=== PATIENT | female | born 1995 | race Caucasian/White ===

== ENCOUNTER 2021-09-13 11:37 | Inpatient (IN) ==
[2021-09-13] MEDS ORDERED: OXYTOCIN 30 UNITS/500 ML BAG IV PRN ×3 (12:25→18:48)
[2021-09-13] MEDS ORDERED: LACTATED RINGER'S 1,000 ML IV PRN (12:25)
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
[2021-09-13 12:54] LABS: Hematocrit (blood only) 32.2 % (37-47); Hemoglobin 10.9 g/dL (12.0-16.0); Mean Corpuscular Hemoglobin 28.3 pg (25-34); Mean Corpuscular Hgb Conc 33.9 g/dL (32-36); Mean Corpuscular Volume 83.6 fL (80-100); Mean Platelet Volume 10.7 fL (7.4-10.4); Platelet Count 209 K/uL (130-400); RDW Coefficient of Variation 13.3 % (11.5-14.5); RDW Standard Deviation 40.2 fL (36.4-46.3); Red Blood Count 3.85 M/uL (4.2-5.4); White Blood Count 11.08 K/uL (4.8-10.8)
[2021-09-13] MEDS ORDERED: SODIUM CHLORIDE 0.9% INJ 10 ML VIAL ONE (13:50)
[2021-09-13] MEDS ORDERED: ePHEDrine sulfate 50 MG/ML AMP ONE (13:50)
[2021-09-13] MEDS ORDERED: fentaNYL 2MCG/ML ROPIVACAINE 1.25MG/ML 100 ML BAG EPI ONE (13:51)
[2021-09-13] MEDS ORDERED: fentaNYL citrate 100 MCG/2 ML VIAL ONE (13:51)
[2021-09-13] MEDS ORDERED: BUPIVACAINE 0.25% 30 ML VIAL ONE (13:51)
--- NOTE | 2021-09-13 14:19 | Anesthesiology Consultation ---
Date of Service September 13, 2021 Assessment & Plan (1) Encounter for pre-operative examination: Chart Review Chart Review: Acceptable Risk for Surgery and Patient NOT seen in Pre Admission Testing Consults Requested none History Height/Weight Height: 5 ft 7 in Weight: 81.647 kg Allergies Allergy/AdvReac Type Severity Reaction Status Date / Time acetaminophen [From Tylenol] Allergy Mild throat Verified 09/10/21 10:46 closes penicillin G Allergy Mild hives Verified 09/10/21 10:46 Medications Home Medications Medication Instructions Recorded Confirmed Last Taken No Known Home Medications 07/15/21 09/10/21 Unknown Active Medications Generic Name Dose Route Start Last Admin Trade Name Freq PRN Reason Stop Dose Admin Lactated Ringer's 1,000 mls @ 125 mls/hr 09/13/21 12:25 09/13/21 12:48 Lr IV 09/15/21 12:24 999 mls/hr .Q8H PRN Administration L&D Protocol Protocol Past Medical History Medical History Aneurysm Posterior Broken arm Left - Repaired. Seizure 2-3 years ago. Stopped Gabapentin with positive test. Spontaneous vaginal delivery 02/2011 [facility] 12/2011 [facility] 07/2015 [facility] 02/2020 [facility] Past Family History Family History Aunt Breast cancer Other Cancer Depression Diabetes Pulmonary embolism Denies family history of Ovarian cancer Prostate cancer Colorectal cancer Past Surgical History Surgical History H/O wisdom tooth extraction History of appendectomy Hx laparoscopic cholecystectomy No pertinent past surgical history S/P dilation and curettage D&E x 2 Social History Smoking Status: Former smoker Hx Alcohol Use: No Hx Substance Use: No Physical Exam Vital Signs Last Vital Signs Temp 36.6 C 09/13/21 12:04 Pulse 75 09/13/21 12:04 Resp 18 09/13/21 13:26 BP 104/70 09/13/21 12:04 Testing Laboratory Results 09/13/21 12:42
[2021-09-13] MEDS ORDERED: NALOXONE HCL 0.4 MG/1 ML VIAL/CARP IV PRN (14:28)
[2021-09-13] MEDS ORDERED: NALOXONE HCL 1 MG in SODIUM CHLORIDE 0.9% 1000ML 1,000 ML IV PRN (14:28)
[2021-09-13] MEDS ORDERED: fentaNYL 2MCG/ML ROPIVACAINE 1.25MG/ML 100 ML BAG EPI PRN (14:28)
[2021-09-13] MEDS ORDERED: ONDANSETRON INJ 2 MG/ML 2 ML VIAL IV PRN (14:28)
[2021-09-13] MEDS ORDERED: ePHEDrine sulfate 50 MG/ML AMP IV PRN (14:28)
[2021-09-13] MEDS ORDERED: diphenhydrAMINE 50 MG/ML VIAL IV PRN (14:28)
[2021-09-13] MEDS ORDERED: NALBUPHINE HCL INJ 10 MG/ML AMP IV PRN (14:28)
--- NOTE | 2021-09-13 15:38 | Labor Progress Brief Note ---
Date of Service September 13, 2021 Subjective Reason For Note: Routine Evaluation Assessment & Plan (1) Encounter for supervision of normal in multigravida: Plan: 1. Fetus: Cat 1 2. Labor: Active. AROM for mec 3. Vitals: Stable (2) Poor patient attendance of care: (3) Active labor at term: Admission and Anticipated Discharge Date Admission Date: September 13, 2021 Physical Exam Genitourinary: Manual OB Exam: + cervical dilation 7 cm, + cervical effacement 90%, + station -1 and + amniotic fluid meconium OB Exam Monitor Tracing: + external FHT monitor used, + external uterine monitor used, + category I and + normal FHT variability; no early decelerations present, no late decelerations present and no variable decelerations Results & Data ([facility]) Vital Signs (Past 12 Hours) Vital Signs Temp Pulse Resp BP Pulse Ox 09/13/21 15:30 105 H 101/56 L 09/13/21 15:26 120 H 99 09/13/21 15:21 105 H 99 09/13/21 15:20 90 100/51 L 09/13/21 15:16 105 H 97/54 L 98 09/13/21 15:11 102 H 98 09/13/21 15:09 114 H 99/51 L 09/13/21 15:07 110 H 102/56 L 09/13/21 15:06 112 H 97 09/13/21 15:04 117 H 103/57 L 09/13/21 15:02 102 H 96/57 L 09/13/21 15:01 108 H 98 09/13/21 15:00 125 H 99/58 L 09/13/21 14:58 108 H 101/64 09/13/21 14:56 120 H 96/52 L 98 09/13/21 14:54 104 H 104/58 L 09/13/21 14:53 116 H 105/64 09/13/21 14:51 95 H 100 09/13/21 14:50 104 H 110/75 09/13/21 14:48 92 H 116/77 09/13/21 14:46 88 98 09/13/21 14:41 92 H 98 09/13/21 14:37 87 122/84 87 L 09/13/21 14:36 86 100 11/08/21 13:26 18 09/13/21 12:04 36.6 C 75 18 104/70 09/13/21 11:52 75 104/70 Coding Level of Care Code None Diagnoses Encounter for supervision of normal in multigravida Z34.80 Poor patient attendance of care O09.30 Active labor at term
[2021-09-13] MEDS ORDERED: METHYLERGONOVINE MALEATE 0.2 MG/ML AMP ONE (16:15)
[2021-09-13] MEDS ORDERED: miSOPROStoL 200 MCG TAB ONE (16:15)
[2021-09-13] MEDS ORDERED: BENZOCAINE 20% AER SPR 82.5 GM CAN EXT PRN ×2 (16:23→18:48)
[2021-09-13] MEDS ORDERED: SUPERCREAM 0.870% 15 GM JAR EXT PRN ×2 (16:23→18:48)
[2021-09-13] MEDS ORDERED: DIPHTHERIA/TETANUS/PERTUSSIS 0.5 ML SYR/VIAL IM ONE (16:23)
[2021-09-13] MEDS ORDERED: ACETAMINOPHEN 325 MG TAB PO PRN (16:23)
[2021-09-13] MEDS ORDERED: HYDROCORTISONE ACETATE 25 MG SUPP PR PRN ×2 (16:23→18:48)
[2021-09-13] MEDS ORDERED: bisacodyL 10 MG SUPP PR PRN (16:23)
--- NOTE | 2021-09-13 18:05 | Anesthesia Procedure Note ---
Date of Service September 13, 2021 Anesthesia Post Epidural Note Vital Signs Vital Signs: Temp Pulse Resp BP Pulse Ox 36.9 C 65 16 114/63 90 09/13/21 15:00 09/13/21 17:46 09/13/21 17:15 09/13/21 17:46 09/13/21 17:16 Notes Mental Status: alert / awake / arousable and participated in evaluation Nausea / Vomiting: adequately controlled Pain: adequately controlled Airway Patency, RR, SpO2: stable & adequate BP & HR: stable & adequate Hydration State: stable & adequate Neuraxial Anesthesia: was administered and sensory block is resolving Anesthetic Complications: no major complications apparent and Pt Satisfied with anesthetic care Epidural: Removed without complications and With tip intact Notes: Epidural site clean, dry and intact. No signs of edema, erythema or bruising at insertion site. Pt instructed to request anesthesia if she has residual lower extremity numbness or if she develops lower extremity pain or weakness, back pain or headache.
[2021-09-13] MEDS ORDERED: IBUPROFEN 600 MG TAB PO PRN (18:48)
[2021-09-13] MEDS ORDERED: DOCUSATE SODIUM 100 MG CAP PO SCH (21:00)
[2021-09-13 22:02] LABS: Amphetamines+Metham, Urine Neg (Neg); Barbiturates, Urine Neg (Neg); Benzodiazepine, Urine Neg (Neg); Cocaine, Urine Neg (Neg); MDMA (Ecstacy), Urine Neg (Neg); Methadone, Urine Neg (Neg); Opiate, Urine Neg (Neg); Phencyclidine, Urine Neg (Neg)
[2021-09-13] MEDS: DOCUSATE SODIUM 100 MG CAP PO SCH (22:10)
[2021-09-13] MEDS: IBUPROFEN 600 MG TAB PO PRN (22:10)
--- NOTE | 2021-09-13 22:45 | Delivery Summary ---
DATE OF SERVICE: 09/13/2021 PROCEDURE: Normal spontaneous vaginal delivery. SURGEON: Jorgito Thompson MD. PREOPERATIVE DIAGNOSES: 1. Single intrauterine at 39 weeks, 0 days gestational age. 2. Late care. 3. History of brain aneurysm. 4. History of cardiac defect in prior . POSTOPERATIVE DIAGNOSES: 1. Single intrauterine at 39 weeks, 0 days gestational age. 2. Late care. 3. History of brain aneurysm. 4. History of cardiac defect in prior . 5. Status post delivery. ESTIMATED BLOOD LOSS: 300 mL. DRAINS: Straight cath at the completion of the case. URINE OUTPUT: Per straight cath. COMPLICATIONS: None. FINDINGS: Viable female infant with weight pending and Apgars of 8 and 9 at one and five minutes res pectively. INDICATIONS: The patient is a 26-year-old G7, P4, admitted at 39 weeks' gestational age, in active la bor. The patient underwent artificial rupture of membranes for meconium stained fluid. She received epidural for anesthesia. After rupture she progressed to complete-complete +2 station, felt a strong urge to push. After 30 minutes of rupture, the patient pushed for approximately one contraction to achieve delivery. DESCRIPTION OF PROCEDURE: The patient progressed to 10 cm dilated, 100% effaced, positive 2 station, pushed over intact perineum with epidural anesthesia, delivered a viable female , weight and A pgars as noted above. Head of the delivered in TITO position, restituted to right transverse. Nuchal cord was noted. Body and shoulders quickly followed. was noted to be vigorous soon after delivery. One minute delayed cord clamping was initiated, after which the cord was double cla mped and cut. remained on maternal abdomen. Cord blood was obtained. Attention was then tu rned to delivery of the placenta, which was delivered intact, 3-vessel cord, gentle cord traction. On inspection of the perineum, vagina, and cervix, there was noted to be no lacerations. Sponge, and i nstrument counts were correct at the completion of the case. Both mother and stable in the i mmediate post-delivery period. Job ID: [id number]
[2021-09-14] MEDS: IBUPROFEN 600 MG TAB PO PRN ×5 (01:44→19:36)
[2021-09-14 06:11] LABS: Hematocrit (blood only) 28.9 % (37-47); Hemoglobin 9.8 g/dL (12.0-16.0); Mean Corpuscular Hemoglobin 28.2 pg (25-34); Mean Corpuscular Hgb Conc 33.9 g/dL (32-36); Mean Platelet Volume 10.6 fL (7.4-10.4); Platelet Count 174 K/uL (130-400); RDW Coefficient of Variation 13.3 % (11.5-14.5); RDW Standard Deviation 40.4 fL (36.4-46.3); Red Blood Count 3.48 M/uL (4.2-5.4); White Blood Count 10.19 K/uL (4.8-10.8)
--- NOTE | 2021-09-14 06:42 | Obstetrical Progress Note ---
Date of Service <George Chapman DO - Last Filed: 09/14/21 08:27> September 14, 2021 Assessment & Plan <George Chapman DO Last Filed: 09/14/21 08:27> (1) Encounter for care and examination after delivery: 26 yo post day 1 from vaginal delivery, doing well. -Continue routine post care. - vital sings reviewed and WNL. (Tmax 36.9) -Blood type B+, GBS -, Rubella Immune. -Encourage ambulation, monitor and control pain with Motrin, tylenol PRN, resume regular diet, monitor lochia. -encourage breast feeding -hemoglobin 9.8 <Jorgito Thompson MD - Last Filed: 09/14/21 08:32> (1) Encounter for care and examination after delivery: Subjective <George Chapman DO - Last Filed: 09/14/21 08:27> Ambulation: ambulating normally Voiding: no voiding problems Passing Gas:: Yes Diet Tolerance:: regular diet Lochia:: Small Feeding Type:: bottle feeding Current Pain Level(1-10): 0 Review of Systems Denies fever, chills, sweats Denies shortness of breath, difficulty breathing, chest pain, palpitations, chest pressure. Denies breast pain. Denies dysuria. Denies headache or changes in vision Physical Exam <George Chapman DO Last Filed: 09/14/21 08:27> General: Alert, oriented. No acute distress. Cardiac: Regular rate and rhythm, no murmurs/rubs/gallops. Respiratory: Clear to auscultation bilaterally a/p, no wheezes/rales/rhonchi. No increased work of breathing. Symmetrical chest rise. No respiratory distress. Abdomen: Soft, nontender, nondistended. Bowel sounds present. Uterus: Uterine fundus firm, palpable 2 cm below umbilicus. Lower Extremities: No lower extremity edema or swelling. No deep calf pain. Adela an's negative bilaterally Results & Data ([facility]) <George Chapman DO - Last Filed: 09/14/21 08:27> Vital Signs (Past 12 Hours) Vital Signs Temp Pulse Resp BP Pulse Ox 09/14/21 03:30 36.8 C 76 18 118/80 99 09/13/21 23:05 36.7 C 70 18 121/85 99 09/13/21 19:45 36.8 C 78 18 111/75 <Jorgito Thompson MD - Last Filed: 09/14/21 08:32> Co-Signing Physician Notes Patient seen and evaluated and agree with the above findings and plan. Routine care Resident Activity Tracking <George Chapman DO - Last Filed: 09/14/21 08:27> Resident Involvement: Resident Care Provided Care Provided: OB Delivery
[2021-09-14] MEDS ORDERED: FERROUS SULFATE 325 MG TAB PO SCH (08:00)
[2021-09-14] MEDS ORDERED: PRENATAL VITAMIN 1 TAB PO SCH (08:00)
[2021-09-14] MEDS: FERROUS SULFATE 325 MG TAB PO SCH (08:01)
[2021-09-14] MEDS: DOCUSATE SODIUM 100 MG CAP PO SCH ×2 (08:01→19:36)
[2021-09-14] MEDS: PRENATAL VITAMIN 1 TAB PO SCH (08:01)
--- NOTE | 2021-09-14 14:19 | Ultrasound Report ---
US renal/blad retro comp CLINICAL HISTORY: r/o stone: L kidney pain h/o stone TECHNIQUE: Multiple sonographic real-time images of the kidneys and bladder were obtained. COMPARISON: None available at the time of this dictation. FINDINGS: The right kidney measures 10.2 cm in length, and the left kidney measures 10.9 cm in length. The right kidney is normal in size, contour, cortical thickness, and echogenicity. No hydronephrosis is identified. No renal lesion is identified. No perinephric fluid collection is seen. The left kidney is normal in size, contour, cortical thickness and echogenicity. No hydronephrosis i s identified. No renal lesion is identified. No perinephric fluid collection is seen. The bladder is partially distended. No large intraluminal mass is seen. Incidental note is made of prominent tortuous vasculature in the left lower quadrant which remains pa tent. Visualized portion of the uterus is unremarkable. IMPRESSION: 1. No evidence of nephrolithiasis. 2. Tortuous vessels in the left lower quadrant are seen without evidence of thrombosis. ACT 112: Negative or not required by law. Electronically signed by: Enzo Mcgowan M.D. 09/14/2021 2:17 PM
--- NOTE | 2021-09-14 16:59 | Communication Note ---
Date of Service: September 14, 2021 Nurse contacted me earlier today noting that the patient had colicky L side pain that felt similar to kidney stones, which she has had in the past. I ordered a renal scan to r/o stone, and this has since been resulted without evidence of nephrolithiasis or hydro. The only commented finding was tortuous vessels in the LLQ; these were noted to be patent / not felt to be concerning for pelvic thrombosis. Dilated tortuous vessels would also be a very typical finding alongside the immediately postgravid uterus. Meanwhile the patient's nurse notes that her L side pain has significantly improved after the patient had a BM, and therefore it was likely r/t stool in the rectosigmoid. Vitals remain normal, patient's pain is reportedly well managed with motrin. Routine care to continue.
[2021-09-14] MEDS ORDERED: bisacodyL 5 MG TABEC PO SCH (20:00)
[2021-09-15] MEDS: IBUPROFEN 600 MG TAB PO PRN ×3 (01:56→12:13)
--- NOTE | 2021-09-15 05:31 | Obstetrical Progress Note ---
Date of Service <George Chapman DO - Last Filed: 09/15/21 07:08> September 15, 2021 Assessment & Plan <George Chapman DO - Last Filed: 09/15/21 07:08> (1) Encounter for care and examination after delivery: 26 yo post day 2 from vaginal delivery, doing well. - vital sings reviewed and WNL. (Tmax 36.9) -Blood type B+, GBS -, Rubella Immune. -Encourage ambulation, recommended control pain with Motrin, tylenol PRN, resume regular diet, monitor lochia. -encourage breast and bottle feeding -Discussed discharge with the patient, case management on board, patient to follow up in 6 weeks with OB outpatient. <Sandy Del Castillo MD - Last Filed: 09/15/21 07:12> (1) Encounter for care and examination after delivery: Subjective <George Chapman DO - Last Filed: 09/15/21 07:08> Ambulation: ambulating normally Voiding: no voiding problems Passing Gas:: Yes Diet Tolerance:: regular diet Lochia:: Small Feeding Type:: bottle feeding Current Pain Level(1-10): 0 Review of Systems Denies fever, chills, sweats Denies shortness of breath, difficulty breathing, chest pain, palpitations, chest pressure. Denies breast pain. Denies dysuria. Denies headache or changes in vision Physical Exam <George Chapman DO - Last Filed: 09/15/21 07:08> General: Alert, oriented. No acute distress. Cardiac: Regular rate and rhythm, no murmurs/rubs/gallops. Respiratory: Clear to auscultation bilaterally a/p, no wheezes/rales/rhonchi. No increased work of breathing. Symmetrical chest rise. No respiratory distress. Abdomen: Soft, nontender, nondistended. Bowel sounds present. Uterus: Uterine fundus firm, palpable 2 cm below umbilicus. Lower Extremities: No lower extremity edema or swelling. No deep calf pain. Ad's negative bilaterally Results & Data ([facility]) <George Chapman DO - Last Filed: 09/15/21 07:08> Vital Signs (Past 12 Hours) Vital Signs Temp Pulse Resp BP 09/14/21 23:30 36.5 C 77 18 119/75 <Sandy Del Castillo MD - Last Filed: 09/15/21 07:12> Co-Signing Physician Notes Resident Physician Supervision Note: I interviewed and examined the patient. Discussed with Dr. Chapman and agree with findings and plan as documented in the note. Any exceptions or clarifications are listed here: [ ] Documented By: Sandy Del Castillo MD, FACOG Resident Activity Tracking <George Chapman DO - Last Filed: 09/15/21 07:08> Resident Involvement: Resident Care Provided Care Provided: OB Delivery
[2021-09-15 06:11] LABS: Hematocrit (blood only) 29.9 % (37-47); Hemoglobin 9.8 g/dL (12.0-16.0)
[2021-09-15] MEDS: DOCUSATE SODIUM 100 MG CAP PO SCH (07:49)
[2021-09-15] MEDS: FERROUS SULFATE 325 MG TAB PO SCH (07:49)
[2021-09-15] MEDS: PRENATAL VITAMIN 1 TAB PO SCH (07:49)
== END 2021-09-15 12:58 | disposition home or self-care (01) | DRG 807 ==
LOC: OPB 11:37 → 4S1 11:39 → 4S2 19:11